=== PATIENT | female | born 1995 | race Caucasian/White ===

== ENCOUNTER 2019-03-18 08:46 | Outpatient (CLI) | payer BC ==
--- NOTE | 2019-03-18 10:53 | ULT ---
RENAL ULTRASOUND: INDICATIONS: UTI. FINDINGS: The right kidney measures 11 cm in length. The left kidney measures approximately 10 cm in length. No hydronephrosis. No renal mass or cystic lesion. The urinary bladder is mildly distended. There is mild bladder wall thickening, which could indicate cystitis. IMPRESSION: 1. Unremarkable renal ultrasound. 2. Mild urinary bladder wall thickening. POS: [facility]
== END 2019-03-18 08:47 | disposition home or self-care (01) ==
LOC: BICULT 08:46
PROVIDERS: ATTEND Internal Medicine
DX: N39.0 Urinary tract infection, site not specified (principal); N32.89 Other specified disorders of bladder
CPT/HCPCS: 76770

== ENCOUNTER 2020-03-09 08:14 | Outpatient (CLI) | payer BC ==
--- NOTE | 2020-03-09 08:30 | RAD ---
XR Finger(s) Lt Min 2 View INDICATION: Left hand arthralgia COMPARISON: None. FINDINGS: Bones: Bone mineralization appears normal. No periarticular erosions are evident. Soft tissues: Within normal limits. Joints: Joint spaces appear preserved. IMPRESSION: No acute osseous abnormality.
== END 2020-03-09 08:15 | disposition home or self-care (01) ==
LOC: BICRAD 08:14
PROVIDERS: ATTEND Internal Medicine
DX: M25.542 Pain in joints of left hand (principal)
CPT/HCPCS: 36415; 80053; 80061; 84439; 84443; 85025; 86140; 86160; 86225; 86235; 86376

== ENCOUNTER 2020-07-31 07:33 | Outpatient (CLI) | payer BC ==
[2020-07-31] MEDS ORDERED: Magnevist 469MG/ML 20 ML VIAL ONE (09:52)
== END 2020-07-31 07:34 | disposition home or self-care (01) ==
LOC: BICMRI 07:33
PROVIDERS: ATTEND Internal Medicine
DX: G43.009 Migraine without aura, not intractable, without status migrainosus (principal)
CPT/HCPCS: 70544; 70553; A9579

== ENCOUNTER 2021-04-15 09:38 | Outpatient (CLI) | payer BC | END 2021-04-15 09:39 | disposition home or self-care (01) | LOC: BICRAD 09:38 | PROVIDERS: ATTEND Internal Medicine | DX: R63.4 Abnormal weight loss (principal) | CPT/HCPCS: 71046 ==

== ENCOUNTER 2021-04-23 13:24 | Outpatient (CLI) | payer BC | END 2021-04-23 13:25 | disposition home or self-care (01) | LOC: BICCT 13:24 | PROVIDERS: ATTEND Internal Medicine | DX: R59.0 Localized enlarged lymph nodes (principal) | CPT/HCPCS: 70491 ==

== ENCOUNTER 2021-05-20 11:28 | Outpatient (CLI) | payer BC | END 2021-05-20 11:29 | disposition home or self-care (01) | LOC: SCSMRI 11:28 | PROVIDERS: ATTEND Psychiatry & Neurology Neurology | DX: G43.009 Migraine without aura, not intractable, without status migrainosus (principal); R20.2 Paresthesia of skin; G95.9 Disease of spinal cord, unspecified | CPT/HCPCS: 70553; 72156; 72157; 72158 ==